=== PATIENT | female | born 1985 | race African-American/Black ===

== ENCOUNTER 2020-03-29 11:55 | Inpatient (IN) ==
[2020-03-29 13:02] LABS: Bacteria,Urine Occasional /HPF (Few); Bilirubin,Urine Negative (Negative); Blood, Urine Negative (Negative); Glucose,Urine (UA) Negative (Negative); Ketones,Urine Negative (Negative); Mucus,Urine Moderate /LPF (Occasional); Nitrite,Urine Positive (Negative); Protein,Urine Negative; RBC,Urine 3 /HPF (0-4); Squamous Epithelial Cell,Urine Few /HPF (0-10); Urine Appearance Slightly Hazy (Clear); Urine Color Yellow (Yellow); Urine Specific Gravity 1.025 (1.001-1.035); Urine Urobilinogen < 2.0 EU/DL (0.2-1.0); WBC,Urine 2 /HPF (0-6)
[2020-03-29 13:02] LABS: Calcium 8.8 MG/DL (8.5-10.1); Osmolality,Calculated 270.8 MOS/KG (273-304); Potassium 3.6 MMOL/L (3.5-5.1)
[2020-03-29 13:08] LABS: Barbiturates Screen,Urine Negative (Negative); Benzodiazepines Screen,Urine Negative (Negative); Cannabinoid Screen,Urine Negative (Negative); Opiate Screen,Urine Negative (Negative); Phencyclidine Screen,Urine Negative (Negative)
[2020-03-29] MEDS ORDERED: cefTRIAXone 500 MG VIAL IM STA (13:48)
[2020-03-29] MEDS ORDERED: cefTRIAXone 250 MG VIAL ONE (14:06)
[2020-03-29 14:07] LABS: Basophils % 0.2 % (0.0-0.8); Eosinophils # 0.1 10*3/uL (0.0-0.87); Eosinophils % 1.5 % (0.00-10.9); Hematocrit 26.1 VOL% (35.7-47.0); Immature Granulocytes % 0.2 %; Immature Granulocytes Absolute 0.01 #; Lymphocytes # 1.7 10*3/uL (1.4-4.0); Lymphocytes % 40.7 % (21.3-54.2); Mean Corpuscular HGB Conc 26.1 GM/DL (32-36); Mean Corpuscular Volume 66.1 FL (87-102); Mean Platelet Volume 10.5 FL (9.6-12.0); Neutrophils % 49.4 % (38.7-73.9); Platelet Count 318 T/CUMM (130-400); Red Blood Count 3.95 MC/CUMM (3.8-5.5); Red Cell Distribution Width 24.4 % (9.3-17.3); White Blood Count 4.1 T/CUMM (4-12)
[2020-03-29 14:09] LABS: Hemoglobin 6.8 GM/DL (12.0-16.0)
[2020-03-29] MEDS ORDERED: DEXTROSE 50% 25 GM/50 ML VIAL IV PRN (14:57)
[2020-03-29] MEDS ORDERED: DOCUSATE SODIUM 100 MG CAPSULE PO PRN (14:57)
[2020-03-29] MEDS ORDERED: GLUCAGON 1 MG VIAL IM PRN (14:57)
[2020-03-29] MEDS ORDERED: SIMETHICONE CHEW 125 MG TABLET PO PRN (14:57)
[2020-03-29] MEDS ORDERED: SODIUM CHLORIDE 0.9% 1,000 ML IV PRN (15:00)
[2020-03-29] MEDS ORDERED: ACETAMINOPHEN 325 MG TABLET PO PRN (15:00)
[2020-03-29] MEDS ORDERED: ONDANSETRON 4 MG/2 ML VIAL IV PRN (15:00)
[2020-03-29 15:44] LABS: % Iron Saturation 3.1 % (18-50); Ferritin 2.4 ng/ml (8-252)
[2020-03-29] MEDS: IRON SUCROSE 100 MG/5 ML VIAL IV SCH (19:50)
[2020-03-29] MEDS: SODIUM CHLORIDE 0.9% 1,000 ML IV SCH (19:51)
[2020-03-29 20:28] LABS: Bilirubin,Direct 0.11 MG/DL (0.0-0.20); Bilirubin,Indirect 0.3 MG/DL (0.0-1.0); Bilirubin,Total 0.4 MG/DL (0.2-1.0); Total Protein 8.7 G/DL (6.4-8.3)
[2020-03-30 02:27] LABS: Albumin 3.3 G/DL (3.4-5.0); Bilirubin,Total 0.6 MG/DL (0.2-1.0); Calcium 8.5 MG/DL (8.5-10.1); Osmolality,Calculated 276.5 MOS/KG (273-304); Potassium 4.1 MMOL/L (3.5-5.1); Total Protein 7.5 G/DL (6.4-8.3)
[2020-03-30 07:05] LABS: Basophils % 0.4 % (0.0-0.8); Eosinophils # 0.1 10*3/uL (0.0-0.87); Eosinophils % 1.6 % (0.00-10.9); Hematocrit 31.1 VOL% (35.7-47.0); Hemoglobin 8.9 GM/DL (12.0-16.0); Immature Granulocytes % 0.2 %; Immature Granulocytes Absolute 0.01 #; Lymphocytes # 1.9 10*3/uL (1.4-4.0); Lymphocytes % 33.6 % (21.3-54.2); Mean Corpuscular HGB Conc 28.6 GM/DL (32-36); Mean Corpuscular Volume 71.5 FL (87-102); Mean Platelet Volume 10.7 FL (9.6-12.0); Monocytes % 7.8 % (1.7-12.7); Neutrophils % 56.4 % (38.7-73.9); Platelet Count 213 T/CUMM (130-400); Red Blood Count 4.35 MC/CUMM (3.8-5.5); White Blood Count 5.5 T/CUMM (4-12)
[2020-03-30 07:50] LABS: Anisocytosis 2+; Platelet Estimate Normal; Polychromasia Slight
[2020-03-30 07:51] LABS: Hypochromasia Slight
[2020-03-30] MEDS: PANTOPRAZOLE 40 MG TABLET PO SCH (08:33)
[2020-03-30] MEDS: IRON SUCROSE 100 MG/5 ML VIAL IV SCH (08:33)
[2020-03-30] MEDS ORDERED: FERROUS SULFATE 325 MG TABLET PO SCH (09:00)
[2020-03-30] MEDS: SODIUM CHLORIDE 0.9% 1,000 ML IV SCH (13:48)
[2020-03-30 17:45] LABS: Hematocrit 32.9 VOL% (35.7-47.0)
[2020-03-31] MEDS: SODIUM CHLORIDE 0.9% 1,000 ML IV SCH (01:56)
[2020-03-31 04:47] LABS: Calcium 8.3 MG/DL (8.5-10.1); Osmolality,Calculated 272.7 MOS/KG (273-304); Potassium 3.9 MMOL/L (3.5-5.1)
[2020-03-31 05:04] LABS: Basophils % 0.2 % (0.0-0.8); Eosinophils # 0.1 10*3/uL (0.0-0.87); Eosinophils % 1.3 % (0.00-10.9); Hematocrit 29.9 VOL% (35.7-47.0); Hemoglobin 8.5 GM/DL (12.0-16.0); Immature Granulocytes % 0.4 %; Immature Granulocytes Absolute 0.02 #; Lymphocytes # 1.8 10*3/uL (1.4-4.0); Lymphocytes % 35.5 % (21.3-54.2); Mean Corpuscular HGB Conc 28.4 GM/DL (32-36); Mean Corpuscular Volume 71.9 FL (87-102); Mean Platelet Volume 10.1 FL (9.6-12.0); Monocytes % 6.9 % (1.7-12.7); Neutrophils % 55.7 % (38.7-73.9); Platelet Count 236 T/CUMM (130-400); Red Blood Count 4.16 MC/CUMM (3.8-5.5); Red Cell Distribution Width 26.7 % (9.3-17.3); White Blood Count 5.2 T/CUMM (4-12)
[2020-03-31 07:30] VITALS: BP 109/62
[2020-03-31 08:45] LABS: Anisocytosis 2+; Platelet Estimate Normal
[2020-03-31 08:46] LABS: Ovalocytes Few; Poikilocytosis Slight; Polychromasia Slight
[2020-03-31] MEDS: PANTOPRAZOLE 40 MG TABLET PO SCH (08:46)
[2020-03-31] MEDS: IRON SUCROSE 100 MG/5 ML VIAL IV SCH ×2 (08:47→08:51)
== END 2020-03-31 10:55 | disposition home or self-care (01) | DRG 812 ==
LOC: N.ED 11:55 → N.EDINP 14:55 → N.5E 15:55
PROVIDERS: ADMIT Internal Medicine; ATTEND Internal Medicine